=== PATIENT | female | born 1960 | race Caucasian/White ===

== ENCOUNTER → 2018-07-03 11:38 | Outpatient (CLI) | payer MEDICAID, SELFPAY ==
[2018-07-05 12:06] LABS: HCV Quant. RNA PCR HCV Not Detected IU/mL (.)
== END ==
PROVIDERS: Family Provider Family Medicine; PCP Family Medicine; Referring Provider Internal Medicine Gastroenterology; Visit Provider Internal Medicine Gastroenterology
DX: B19.20 Unspecified viral hepatitis C without hepatic coma (principal)
CPT/HCPCS: 36415; 87522